=== PATIENT | female | born 1970 | race Caucasian/White ===

== ENCOUNTER 2016-09-04 15:15 | Day surgery (SDC) | payer MEDICAID ==
[2016-09-04] MEDS ORDERED: LIDOCAINE 2% JELLY 5 ML TUBE ONE (15:25)
--- NOTE | 2016-09-04 17:21 | Operative Report ---
Operative Report DATE OF SURGERY: 09/04/16 Operative Report: Pre-op diagnosis: Feeding difficulty Post-op diagnosis: Feeding difficulty Surgery: G-tube replacement Medications: None Tissue removed: None Procedure: The old 24 Azerbaijani low profile gastrostomy tube was removed after the balloon was deflated. This was replaced with another 24 Azerbaijani 4.5 cm tube. There was good flow of gastric contents after the tube was replaced. She tolerated the procedure well Plan: Resume feeding OPERATION: .
== END 2016-09-04 16:20 | disposition home or self-care (01) ==
LOC: END 15:15
PROVIDERS: ATTEND Internal Medicine Gastroenterology
PROC: 0D20XUZ Change Feeding Device in Upper Intestinal Tract, External Approach (ICD-10-PCS; principal; 2016-09-04)
DX: R63.3 Feeding difficulties (principal)
CPT/HCPCS: 43760; J3490

== ENCOUNTER 2017-01-29 15:47 | Day surgery (SDC) | payer MEDICAID ==
[~2017-01-29 15:47] MED LIST: LIDOCAINE 2% JELLY 5 ML TUBE ONE
--- NOTE | 2017-01-29 16:22 | Operative Report ---
Operative Report DATE OF SURGERY: 01/29/17 Operative Report: Pre-op diagnosis: Feeding difficulty Post-op diagnosis: Feeding difficulty Surgery: G-tube replacement Medications: None Tissue removed: None Procedure: The old 24French Low Profile gastrostomy tube was removed after the balloon was deflated. This was replaced with another 24 Occitan tube. There was some mild erythema around the G-tube site. There was good flow of gastric contents after the tube was replaced. She tolerated the procedure well Plan: Resume feeding OPERATION: .
== END 2017-01-29 16:25 | disposition home or self-care (01) ==
LOC: END 15:47
PROVIDERS: ATTEND Internal Medicine Gastroenterology
PROC: 0DH63UZ Insertion of Feeding Device into Stomach, Percutaneous Approach (ICD-10-PCS; principal; 2017-01-29)
DX: R63.3 Feeding difficulties (principal); K21.9 Gastro-esophageal reflux disease without esophagitis; Z88.0 Allergy status to penicillin
CPT/HCPCS: 43760; J3490

== ENCOUNTER 2017-05-28 16:11 | Day surgery (SDC) | payer MEDICAID ==
[~2017-05-28 16:11] MED LIST changes: +EPINEPHRINE INJ 1 MG/10 ML DISP.SYRIN ONE; +FENTANYL CITRATE INJ/PF 100 MCG/2 ML AMPUL ONE; +FLUMAZENIL INJ 0.5 MG/5 ML VIAL ONE; +GLUCAGON,HUMAN RECOMB 1 MG INJ ONE; -LIDOCAINE 2% JELLY 5 ML TUBE ONE; +MIDAZOLAM 2 MG/2 ML INJ ONE; +NALOXONE HCL INJ/PF 0.4 MG/1 ML SDV ONE; +ONDANSETRON HCL INJ/PF 4 MG/2 ML SDV ONE
[2017-05-28] MEDS ORDERED: LIDOCAINE 2% JELLY 5 ML TUBE ONE (16:34)
--- NOTE | 2017-05-28 17:38 | Operative Report ---
Operative Report DATE OF SURGERY: 05/28/17 Operative Report: Pre-op diagnosis: Feeding difficulty Post-op diagnosis: Feeding difficulty Surgery: G-tube replacement Medications: None Tissue removed: None Procedure: The old 24 Yakut gastrostomy tube was removed after the balloon was deflated. This was replaced with another 24 Yakut Low Profile tube. The balloon was inflated with 6 ml of fluid. There was good flow of gastric contents after the tube was replaced. She tolerated the procedure well Plan: Resume feeding. She was given Keflex for mild cellulitis OPERATION: .
== END 2017-05-28 17:49 | disposition home or self-care (01) ==
LOC: END 16:11
PROVIDERS: ATTEND Internal Medicine Gastroenterology
PROC: 0D20XUZ Change Feeding Device in Upper Intestinal Tract, External Approach (ICD-10-PCS; principal; 2017-05-28)
DX: R63.3 Feeding difficulties (principal); K94.20 Gastrostomy complication, unspecified; E03.9 Hypothyroidism, unspecified; K21.9 Gastro-esophageal reflux disease without esophagitis; Z88.0 Allergy status to penicillin; Z79.899 Other long term (current) drug therapy
CPT/HCPCS: 43760; J3490; J0171; J1610; J2250; J2310; J2405; J3010

== ENCOUNTER 2017-10-08 16:18 | Day surgery (SDC) | payer MEDICAID ==
[2017-10-08] MEDS ORDERED: LIDOCAINE 2% JELLY 5 ML TUBE ONE (16:32)
[2017-10-08] MEDS ORDERED: LIDOCAINE 2% JELLY 30 ML TUBE ONE (17:28)
== END 2017-10-08 18:10 | disposition home or self-care (01) ==
LOC: END 16:18
PROVIDERS: ATTEND Internal Medicine Gastroenterology
DX: Z93.1 Gastrostomy status (principal); R63.3 Feeding difficulties; E03.9 Hypothyroidism, unspecified; G80.9 Cerebral palsy, unspecified; K21.9 Gastro-esophageal reflux disease without esophagitis; Z79.899 Other long term (current) drug therapy; Z88.0 Allergy status to penicillin; Z88.8 Allergy status to other drugs, medicaments and biological substances
CPT/HCPCS: 43760; J3490

== ENCOUNTER → 2018-01-07 | Day surgery (SDC) | payer MEDICAID ==
[~2018-01-07] MED LIST changes: -EPINEPHRINE INJ 1 MG/10 ML DISP.SYRIN ONE; -FENTANYL CITRATE INJ/PF 100 MCG/2 ML AMPUL ONE; -FLUMAZENIL INJ 0.5 MG/5 ML VIAL ONE; -GLUCAGON,HUMAN RECOMB 1 MG INJ ONE; +LIDOCAINE 2% JELLY 5 ML TUBE ONE; -MIDAZOLAM 2 MG/2 ML INJ ONE; -NALOXONE HCL INJ/PF 0.4 MG/1 ML SDV ONE; -ONDANSETRON HCL INJ/PF 4 MG/2 ML SDV ONE
--- NOTE | 2018-01-07 17:01 | Operative Report ---
Operative Report DATE OF SURGERY: 01/07/18 Operative Report: Pre-op diagnosis: Feeding difficulty and G-tube malfunction Post-op diagnosis: Feeding difficulty Surgery: G-tube replacement Medications: None Tissue removed: None Procedure: The old 24 Maori Low Profile gastrostomy tube was removed after the balloon was deflated. This was replaced with another 24 Maori tube. There was some erythema, skin excoriation and tenderness 1-1/2 cm around the G-tube site and within the G-tube track. There was good flow of gastric contents after the tube was replaced. She tolerated the procedure well Plan: Resume feeding. We treat her with antibiotics for 7 days. Advised her to avoid using cream around the site on a regular basis. OPERATION: .
== END ==
LOC: END 15:27
PROVIDERS: ATTEND Internal Medicine Gastroenterology
DX: K94.20 Gastrostomy complication, unspecified (principal); R63.3 Feeding difficulties
CPT/HCPCS: 43760; J3490

== ENCOUNTER 2018-05-20 15:26 | Day surgery (SDC) | payer MEDICAID ==
[2018-05-20] MEDS ORDERED: LIDOCAINE 2% JELLY 5 ML TUBE ONE (15:33)
--- NOTE | 2018-05-20 16:38 | Operative Report ---
Operative Report DATE OF SURGERY: 05/20/18 Operative Report: Pre-op diagnosis: Feeding difficulty Post-op diagnosis: Feeding difficulty Surgery: G-tube replacement Medications: None Tissue removed: None Procedure: The old 24French Low Profile gastrostomy tube was removed after the balloon was deflated. This was replaced with another 24 Portuguese tube. There was some skin excoriation around the G-tube site. There was good flow of gastric contents after the tube was replaced. She tolerated the procedure well Plan: Resume feeding. Keep the G-tube site dry OPERATION: .
== END 2018-05-20 16:25 | disposition home or self-care (01) ==
LOC: END 15:26
PROVIDERS: ATTEND Internal Medicine Gastroenterology
DX: K94.20 Gastrostomy complication, unspecified (principal); R63.3 Feeding difficulties; E03.9 Hypothyroidism, unspecified; G80.9 Cerebral palsy, unspecified; K21.9 Gastro-esophageal reflux disease without esophagitis; Z79.899 Other long term (current) drug therapy; Z80.0 Family history of malignant neoplasm of digestive organs; Z88.0 Allergy status to penicillin
CPT/HCPCS: 43760; J3490